=== PATIENT | female | born 1960 | race Caucasian/White ===

== ENCOUNTER 2017-10-10 11:20 | Inpatient (IN) ==
[2017-10-10 12:29] LABS: Basophils % 0.8 % (0.0-0.8); Eosinophils # 0.1 10*3/uL (0.0-0.87); Eosinophils % 2.3 % (0.00-10.9); Hematocrit 43.2 VOL% (35.7-47.0); Hemoglobin 15.1 GM/DL (12.0-16.0); Immature Granulocytes % 0.3 %; Immature Granulocytes Absolute 0.01 #; Lymphocytes # 1.4 10*3/uL (1.4-4.0); Lymphocytes % 36.3 % (21.3-54.2); Mean Corpuscular Hemoglobin 36 PG (27-34); Mean Corpuscular Volume 102.6 FL (87-102); Mean Platelet Volume 10.5 FL (9.6-12.0); Monocytes # 0.4 10*3/uL (0.11-0.8); Monocytes % 9.9 % (1.7-12.7); Neutrophils % 50.4 % (38.7-73.9); Platelet Count 177 T/CUMM (130-400); Red Blood Count 4.21 MC/CUMM (3.8-5.5); Red Cell Distribution Width 14.3 % (9.3-17.3); White Blood Count 3.9 T/CUMM (4-12)
[2017-10-10 12:35] LABS: INR 1.4; PT Patient Result 14.1 SECS; Partial Thromboplastin Time 31.5 SECS (0-40)
[2017-10-10 12:54] LABS: Alanine Aminotransferase 75 U/L (13-56); Albumin 3.5 G/DL (3.4-5.0); Alkaline Phosphatase 93 U/L (45-117); Aspartate Amino Transferase 182 U/L (0-37); Blood Urea Nitrogen 10 MG/DL (7-18); Calcium 8.8 MG/DL (8.5-10.1); Glucose 102 MG/DL (74-106); Osmolality,Calculated 284.8 MOS/KG (273-304); Potassium 3.1 MMOL/L (3.5-5.1); Sodium 144 MMOL/L (136-145); Troponin I Only < 0.015 NG/ML (0.00-0.045)
[2017-10-10] MEDS ORDERED: ACETAMINOPHEN 325 MG TABLET PO PRN (15:30)
[2017-10-10] MEDS ORDERED: guaiFENesin/DM ER 600-30 MG TABLET PO PRN (15:30)
[2017-10-10] MEDS ORDERED: diphenhydrAMINE CAP 25 MG CAPSULE PO PRN (15:30)
[2017-10-10] MEDS ORDERED: MAGNESIUM SULF RIDER 4 GM in PREMIX 1 EACH IV PRN (15:30)
[2017-10-10] MEDS ORDERED: BISACODYL 5 MG TABLET PO PRN (15:30)
[2017-10-10] MEDS ORDERED: MAGNESIUM SULF RIDER 2 GM in PREMIX 1 EACH IV PRN (15:30)
[2017-10-10] MEDS ORDERED: ONDANSETRON 4 MG/2 ML VIAL IV PRN (15:30)
[2017-10-10] MEDS ORDERED: DIGOXIN 0.5 MG/2 ML AMP IV STA (15:56)
[2017-10-10] MEDS ORDERED: DILTIAZEM 50 MG/10 ML VIAL IV ONE (17:00)
[2017-10-10] MEDS ORDERED: DILTIAZEM 100 MG VIAL.ADD IV ONE (17:23)
[2017-10-10] MEDS ORDERED: SODIUM CHLORIDE 0.9% 100 ML IV ONE (17:23)
[2017-10-10] MEDS ORDERED: FUROSEMIDE 40 MG TABLET ONE (17:28)
[2017-10-10] MEDS: DILTIAZEM INJ 100 MG in SODIUM CHLORIDE 0.9% 100 ML IV SCH (17:32)
[2017-10-10] MEDS: FUROSEMIDE 40 MG TABLET PO SCH (17:33)
[2017-10-10] MEDS ORDERED: PNEUMOCOCCAL VACCINE (23 VALENT) 0.5 ML VIAL IM ONE (18:23)
[2017-10-10] MEDS: POTASSIUM CHLORIDE 20 MEQ TABLET PO PRN ×3 (18:26→22:24)
[2017-10-10 19:21] LABS: Troponin I Only < 0.015 NG/ML (0.00-0.045)
[2017-10-10] MEDS: cloNIDine 0.1 MG TABLET PO SCH (20:24)
[2017-10-10] MEDS: DILTIAZEM CD 180 MG CAPSULE PO SCH (20:24)
[2017-10-10] MEDS: RIVAROXABAN 20 MG TABLET PO SCH (20:25)
[2017-10-10] MEDS ORDERED: ATENOLOL/CHLORTHALIDONE 50-25 MG TABLET PO SCH (21:00)
[2017-10-10 22:12] LABS: Troponin I Only < 0.015 NG/ML (0.00-0.045)
[2017-10-10] MEDS: ZALEPLON 5 MG CAPSULE PO PRN (22:24)
[2017-10-11] MEDS: DILTIAZEM INJ 100 MG in SODIUM CHLORIDE 0.9% 100 ML IV SCH ×2 (03:50→19:05)
[2017-10-11 05:04] LABS: Basophils % 0.5 % (0.0-0.8); Eosinophils # 0.1 10*3/uL (0.0-0.87); Eosinophils % 1.1 % (0.00-10.9); Hematocrit 40.6 VOL% (35.7-47.0); Hemoglobin 14.2 GM/DL (12.0-16.0); Immature Granulocytes % 0.5 %; Immature Granulocytes Absolute 0.03 #; Lymphocytes # 2.2 10*3/uL (1.4-4.0); Lymphocytes % 32.9 % (21.3-54.2); Mean Corpuscular Hemoglobin 36 PG (27-34); Mean Corpuscular Volume 103.3 FL (87-102); Mean Platelet Volume 10.6 FL (9.6-12.0); Monocytes # 0.8 10*3/uL (0.11-0.8); Monocytes % 12.4 % (1.7-12.7); Neutrophils # 3.5 10*3/uL (1.4-7.4); Neutrophils % 52.6 % (38.7-73.9); Platelet Count 174 T/CUMM (130-400); Red Blood Count 3.93 MC/CUMM (3.8-5.5); Red Cell Distribution Width 14.2 % (9.3-17.3); White Blood Count 6.6 T/CUMM (4-12)
[2017-10-11 05:34] LABS: Calcium 8.5 MG/DL (8.5-10.1); Magnesium 2.4 MG/DL (1.8-2.4); Osmolality,Calculated 280.1 MOS/KG (273-304); Potassium 3.2 MMOL/L (3.5-5.1)
[2017-10-11 05:57] LABS: Risk Ratio 2.48; VLDL CHOLESTEROL 24.6 MG/DL
[2017-10-11] MEDS: POTASSIUM CHLORIDE 20 MEQ TABLET PO PRN (07:35)
[2017-10-11] MEDS ORDERED: ATENOLOL 25 MG TABLET PO SCH ×2 (09:00)
[2017-10-11] MEDS ORDERED: DILTIAZEM HCL 180 MG PO SCH (09:00)
[2017-10-11] MEDS: POTASSIUM CHLORIDE 20 MEQ TABLET PO SCH (09:51)
[2017-10-11] MEDS: FUROSEMIDE 40 MG TABLET PO SCH ×2 (09:53→17:38)
[2017-10-11] MEDS: SERTRALINE 100 MG TABLET PO SCH (09:53)
[2017-10-11] MEDS: PANTOPRAZOLE 40 MG TABLET PO SCH (09:53)
[2017-10-11] MEDS: MULTIVITAMIN (CENTRUM) TABLET PO SCH (09:53)
[2017-10-11] MEDS: cloNIDine 0.1 MG TABLET PO SCH ×2 (09:53→21:10)
[2017-10-11] MEDS: DILTIAZEM CD 180 MG CAPSULE PO SCH (09:54)
[2017-10-11] MEDS: CHLORTHALIDONE 25 MG TABLET PO SCH ×2 (09:54→21:10)
[2017-10-11] MEDS: ZALEPLON 5 MG CAPSULE PO PRN (21:10)
[2017-10-11] MEDS: DILTIAZEM CD 240 MG CAPSULE PO SCH (21:10)
[2017-10-11] MEDS: ATENOLOL 50 MG TABLET PO SCH (21:11)
[2017-10-11] MEDS: RIVAROXABAN 20 MG TABLET PO SCH (21:11)
[2017-10-12] MEDS: DILTIAZEM INJ 100 MG in SODIUM CHLORIDE 0.9% 100 ML IV SCH (04:16)
[2017-10-12 05:36] LABS: Basophils % 0.6 % (0.0-0.8); Eosinophils # 0.1 10*3/uL (0.0-0.87); Eosinophils % 1.7 % (0.00-10.9); Hematocrit 40.4 VOL% (35.7-47.0); Hemoglobin 13.9 GM/DL (12.0-16.0); Immature Granulocytes % 0.4 %; Immature Granulocytes Absolute 0.02 #; Lymphocytes % 37.9 % (21.3-54.2); Mean Corpuscular HGB Conc 34.4 GM/DL (32-36); Mean Corpuscular Hemoglobin 36 PG (27-34); Mean Corpuscular Volume 103.6 FL (87-102); Mean Platelet Volume 10.5 FL (9.6-12.0); Monocytes # 0.6 10*3/uL (0.11-0.8); Monocytes % 11.5 % (1.7-12.7); Neutrophils # 2.6 10*3/uL (1.4-7.4); Neutrophils % 47.9 % (38.7-73.9); Platelet Count 147 T/CUMM (130-400); Red Cell Distribution Width 14.1 % (9.3-17.3); White Blood Count 5.4 T/CUMM (4-12)
[2017-10-12 05:55] LABS: Calcium 8.4 MG/DL (8.5-10.1); Magnesium 2.4 MG/DL (1.8-2.4); Osmolality,Calculated 275.4 MOS/KG (273-304)
[2017-10-12] MEDS: DILTIAZEM CD 240 MG CAPSULE PO SCH ×2 (09:09→21:31)
[2017-10-12] MEDS: MULTIVITAMIN (CENTRUM) TABLET PO SCH (09:09)
[2017-10-12] MEDS: POTASSIUM CHLORIDE 20 MEQ TABLET PO SCH ×3 (09:10→21:31)
[2017-10-12] MEDS: PANTOPRAZOLE 40 MG TABLET PO SCH (09:11)
[2017-10-12] MEDS: SERTRALINE 100 MG TABLET PO SCH (09:11)
[2017-10-12] MEDS: ATENOLOL 50 MG TABLET PO SCH ×2 (09:14→21:32)
[2017-10-12] MEDS: cloNIDine 0.1 MG TABLET PO SCH ×2 (09:14→21:31)
[2017-10-12] MEDS: SPIRONOLACTONE 25 MG TABLET PO SCH ×2 (09:19→21:32)
[2017-10-12] MEDS: FUROSEMIDE 40 MG TABLET PO SCH ×2 (09:19→18:11)
[2017-10-12] MEDS: RIVAROXABAN 20 MG TABLET PO SCH (21:31)
[2017-10-13 05:15] LABS: Basophils % 0.8 % (0.0-0.8); Eosinophils # 0.1 10*3/uL (0.0-0.87); Eosinophils % 1.6 % (0.00-10.9); Hematocrit 41.5 VOL% (35.7-47.0); Hemoglobin 14.1 GM/DL (12.0-16.0); Immature Granulocytes % 0.2 %; Immature Granulocytes Absolute 0.01 #; Lymphocytes # 1.8 10*3/uL (1.4-4.0); Lymphocytes % 35.5 % (21.3-54.2); Mean Corpuscular Hemoglobin 36 PG (27-34); Mean Corpuscular Volume 105.6 FL (87-102); Monocytes # 0.7 10*3/uL (0.11-0.8); Monocytes % 13.6 % (1.7-12.7); Neutrophils # 2.5 10*3/uL (1.4-7.4); Neutrophils % 48.3 % (38.7-73.9); Platelet Count 140 T/CUMM (130-400); Red Blood Count 3.93 MC/CUMM (3.8-5.5); Red Cell Distribution Width 13.7 % (9.3-17.3); White Blood Count 5.2 T/CUMM (4-12)
[2017-10-13 05:37] LABS: Calcium 8.6 MG/DL (8.5-10.1); Magnesium 2.3 MG/DL (1.8-2.4); Osmolality,Calculated 280.1 MOS/KG (273-304); Potassium 3.3 MMOL/L (3.5-5.1)
[2017-10-13] MEDS: POTASSIUM CHLORIDE 20 MEQ TABLET PO PRN (06:27)
[2017-10-13] MEDS: DILTIAZEM CD 240 MG CAPSULE PO SCH ×2 (10:13→21:45)
[2017-10-13] MEDS: POTASSIUM CHLORIDE 20 MEQ TABLET PO SCH ×2 (10:14→21:45)
[2017-10-13] MEDS: ATENOLOL 50 MG TABLET PO SCH (10:15)
[2017-10-13] MEDS: cloNIDine 0.1 MG TABLET PO SCH ×2 (10:15→21:45)
[2017-10-13] MEDS: PANTOPRAZOLE 40 MG TABLET PO SCH (10:15)
[2017-10-13] MEDS: FUROSEMIDE 40 MG TABLET PO SCH ×2 (10:16→15:13)
[2017-10-13] MEDS: MULTIVITAMIN (CENTRUM) TABLET PO SCH (10:16)
[2017-10-13] MEDS: SPIRONOLACTONE 25 MG TABLET PO SCH ×2 (10:16→15:13)
[2017-10-13] MEDS: SERTRALINE 100 MG TABLET PO SCH (10:16)
[2017-10-13] MEDS ORDERED: ATENOLOL 50 MG TABLET PO ONE (11:13)
[2017-10-13] MEDS ORDERED: DIGOXIN 0.25 MG TABLET PO ONE (11:14)
[2017-10-13] MEDS ORDERED: DIGOXIN 0.25 MG TABLET PO SCH (13:00)
[2017-10-13] MEDS ORDERED: SIMETHICONE CHEW 125 MG TABLET PO PRN (17:35)
[2017-10-13] MEDS ORDERED: PRAMIPEXOLE 0.25 MG TABLET PO SCH (21:00)
[2017-10-13] MEDS: RIVAROXABAN 20 MG TABLET PO SCH (21:45)
[2017-10-13] MEDS: ATENOLOL 100 MG TABLET PO SCH (21:45)
[2017-10-13] MEDS: ZALEPLON 5 MG CAPSULE PO PRN (21:52)
[2017-10-14 03:48] LABS: Basophils % 0.6 % (0.0-0.8); Eosinophils # 0.1 10*3/uL (0.0-0.87); Eosinophils % 1.6 % (0.00-10.9); Hematocrit 42.9 VOL% (35.7-47.0); Hemoglobin 14.6 GM/DL (12.0-16.0); Immature Granulocytes % 0.3 %; Immature Granulocytes Absolute 0.02 #; Lymphocytes # 1.7 10*3/uL (1.4-4.0); Lymphocytes % 25.5 % (21.3-54.2); Mean Corpuscular Hemoglobin 36 PG (27-34); Mean Corpuscular Volume 105.9 FL (87-102); Monocytes # 0.7 10*3/uL (0.11-0.8); Monocytes % 10.6 % (1.7-12.7); Neutrophils # 4.1 10*3/uL (1.4-7.4); Neutrophils % 61.4 % (38.7-73.9); Platelet Count 135 T/CUMM (130-400); Red Blood Count 4.05 MC/CUMM (3.8-5.5); Red Cell Distribution Width 13.8 % (9.3-17.3); White Blood Count 6.7 T/CUMM (4-12)
[2017-10-14 04:28] LABS: Albumin 3.4 G/DL (3.4-5.0); Calcium 9.3 MG/DL (8.5-10.1); Magnesium 2.3 MG/DL (1.8-2.4); Osmolality,Calculated 276.7 MOS/KG (273-304); Potassium 3.8 MMOL/L (3.5-5.1); Total Protein 6.7 G/DL (6.4-8.3)
[2017-10-14 07:48] VITALS: BP 137/78
[2017-10-14] MEDS: cloNIDine 0.1 MG TABLET PO SCH (08:28)
[2017-10-14] MEDS: SPIRONOLACTONE 25 MG TABLET PO SCH (08:28)
[2017-10-14] MEDS: FUROSEMIDE 40 MG TABLET PO SCH (08:28)
[2017-10-14] MEDS: ATENOLOL 100 MG TABLET PO SCH (08:28)
[2017-10-14] MEDS: SERTRALINE 100 MG TABLET PO SCH (08:29)
[2017-10-14] MEDS: MULTIVITAMIN (CENTRUM) TABLET PO SCH (08:29)
[2017-10-14] MEDS: POTASSIUM CHLORIDE 20 MEQ TABLET PO SCH (08:29)
[2017-10-14] MEDS: DILTIAZEM CD 240 MG CAPSULE PO SCH (08:29)
[2017-10-14] MEDS: PANTOPRAZOLE 40 MG TABLET PO SCH (08:29)
[2017-10-14] MEDS ORDERED: PNEUMOCOCCAL VACCINE (23 VALENT) 0.5 ML VIAL IM ONE (10:22)
== END 2017-10-14 11:32 | disposition home or self-care (01) | DRG 309 ==
LOC: N.ED 11:20 → N.EDINP 11:20 → N.TELES 18:10
PROVIDERS: ADMIT Internal Medicine Cardiovascular Disease; ATTEND Internal Medicine Cardiovascular Disease

== ENCOUNTER 2018-06-14 16:53 | Inpatient (IN) ==
[2018-06-14] MEDS ORDERED: ONDANSETRON 4 MG/2 ML VIAL IV STA (17:22)
[2018-06-14 17:44] LABS: Basophils % 0.4 % (0.0-0.8); Eosinophils % 0.3 % (0.00-10.9); Hematocrit 33.7 VOL% (35.7-47.0); Hemoglobin 11.7 GM/DL (12.0-16.0); Immature Granulocytes % 1.4 %; Immature Granulocytes Absolute 0.11 #; Mean Corpuscular HGB Conc 34.7 GM/DL (32-36); Mean Corpuscular Hemoglobin 41 PG (27-34); Mean Corpuscular Volume 117.4 FL (87-102); Mean Platelet Volume 10.2 FL (9.6-12.0); Monocytes # 0.9 10*3/uL (0.11-0.8); Monocytes % 11.7 % (1.7-12.7); NRBC # 0.02 10*3/uL; Neutrophils # 5.9 10*3/uL (1.4-7.4); Neutrophils % 74.2 % (38.7-73.9); Platelet Count 111 T/CUMM (130-400); Red Blood Count 2.87 MC/CUMM (3.8-5.5); Red Cell Distribution Width 13.2 % (9.3-17.3); White Blood Count 7.9 T/CUMM (4-12)
[2018-06-14 18:07] LABS: Albumin 2.5 G/DL (3.4-5.0); Calcium 9.1 MG/DL (8.5-10.1); Osmolality,Calculated 253.1 MOS/KG (273-304); Potassium 3.6 MMOL/L (3.5-5.1); Total Protein 6.2 G/DL (6.4-8.3)
[2018-06-14 18:09] LABS: Bilirubin,Total 20.6 MG/DL (0.2-1.0)
[2018-06-14 19:32] LABS: INR 1.8; PT Patient Result 18.4 SECS
[2018-06-14 19:38] LABS: Partial Thromboplastin Time 40.6 SECS (0-40)
[2018-06-14] MEDS ORDERED: traZODone 50 MG TABLET PO PRN (19:40)
[2018-06-14] MEDS ORDERED: ONDANSETRON 4 MG/2 ML VIAL IV PRN (19:40)
[2018-06-14] MEDS ORDERED: DOCUSATE SODIUM 100 MG CAPSULE PO PRN (19:40)
[2018-06-14] MEDS ORDERED: ACETAMINOPHEN 325 MG TABLET PO PRN (19:40)
[2018-06-14 20:37] LABS: Hepatitis A Ab IgM Quant 0.26 Index; Hepatitis A Ab IgM Result Negative (Negative); Hepatitis B Core IgM Quant < 0.05 Index; Hepatitis B Core IgM Result Negative (Negative); Hepatitis B Surface Ag Quant 0.19 Index; Hepatitis B Surface Ag Result Negative (Negative); Hepatitis C Virus Ab Quant 0.02 Index; Hepatitis C Virus Ab Result Negative (Negative)
[2018-06-14] MEDS: ENOXAPARIN 40 MG/0.4 ML SYRINGE SUBCUT SCH ×2 (22:13→22:22)
[2018-06-14] MEDS ORDERED: ONDANSETRON 4 MG TABLET PO PRN (22:20)
[2018-06-14] MEDS: POTASSIUM CHLORIDE 20 MEQ TABLET PO SCH (22:27)
[2018-06-14] MEDS: AMIODARONE 200 MG TABLET PO SCH (22:37)
[2018-06-14] MEDS: LACTULOSE 20 GM/30 ML UDCUP PO SCH (22:38)
[2018-06-14] MEDS: SODIUM CHLORIDE 0.9% 1,000 ML IV SCH (22:39)
[2018-06-14 22:45] LABS: Apearance,Urine Slightly Hazy (Clear); Bacteria,Urine Occasional /HPF (Few); Bilirubin,Urine Moderate mg/dL (Negative); Blood, Urine Moderate mg/dL (Negative); Glucose,Urine (UA) Negative (Negative); Ketones,Urine 5 mg/dL (Negative); Mucus,Urine Occasional /LPF (Occasional); Nitrite,Urine Negative (Negative); Protein,Urine 30 MG/DL; RBC,Urine 4 /HPF (0-4); Squamous Epithelial Cell,Urine Occasional /HPF (0-10); Urine Color Amber (Yellow); Urine Specific Gravity 1.041 (1.001-1.035); WBC,Urine 20 /HPF (0-6)
[2018-06-14 23:34] LABS: % Iron Saturation 94.6 % (18-50); Ferritin 1425.6 ng/ml (8-252)
[2018-06-15 00:42] LABS: Hepatitis A Ab IgM Quant 0.25 Index; Hepatitis A Ab IgM Result Negative (Negative); Hepatitis B Core IgM Quant < 0.05 Index; Hepatitis B Core IgM Result Negative (Negative); Hepatitis B Surface Ag Quant 0.14 Index; Hepatitis B Surface Ag Result Negative (Negative); Hepatitis C Virus Ab Quant 0.02 Index; Hepatitis C Virus Ab Result Negative (Negative)
[2018-06-15 05:30] LABS: Basophils % 0.4 % (0.0-0.8); Eosinophils % 0.5 % (0.00-10.9); Hematocrit 30.1 VOL% (35.7-47.0); Hemoglobin 10.4 GM/DL (12.0-16.0); Immature Granulocytes % 1.7 %; Immature Granulocytes Absolute 0.13 #; Lymphocytes # 1.2 10*3/uL (1.4-4.0); Lymphocytes % 15.4 % (21.3-54.2); Mean Corpuscular HGB Conc 34.6 GM/DL (32-36); Mean Corpuscular Hemoglobin 40 PG (27-34); Mean Corpuscular Volume 115.8 FL (87-102); Mean Platelet Volume 10.3 FL (9.6-12.0); Monocytes # 0.7 10*3/uL (0.11-0.8); Monocytes % 9.3 % (1.7-12.7); Neutrophils # 5.6 10*3/uL (1.4-7.4); Neutrophils % 72.7 % (38.7-73.9); Platelet Count 105 T/CUMM (130-400); Red Cell Distribution Width 13.2 % (9.3-17.3); White Blood Count 7.6 T/CUMM (4-12)
[2018-06-15 05:38] LABS: INR 1.4; PT Patient Result 14.7 SECS
[2018-06-15 05:47] LABS: Hypochromasia 1+; Ovalocytes Slight; Platelet Estimate Decreased
[2018-06-15 05:50] LABS: Risk Ratio 25.91; VLDL CHOLESTEROL 84.2 MG/DL
[2018-06-15 06:01] LABS: Albumin 2.4 G/DL (3.4-5.0); Calcium 8.9 MG/DL (8.5-10.1); Osmolality,Calculated 254.1 MOS/KG (273-304); Potassium 3.7 MMOL/L (3.5-5.1); Total Protein 5.6 G/DL (6.4-8.3)
[2018-06-15] MEDS: FAMOTIDINE 20 MG/2 ML VIAL IV SCH ×2 (08:59→21:12)
[2018-06-15] MEDS ORDERED: PANTOPRAZOLE 40 MG TABLET PO SCH (09:00)
[2018-06-15] MEDS: MAGNESIUM OXIDE 400 MG TABLET PO SCH (10:27)
[2018-06-15] MEDS: CYANOCOBALAMIN 500 MCG TABLET PO SCH (10:27)
[2018-06-15] MEDS: FOLIC ACID 0.4 MG TABLET PO SCH (10:27)
[2018-06-15] MEDS: AMIODARONE 200 MG TABLET PO SCH ×2 (10:27→21:11)
[2018-06-15] MEDS: POTASSIUM CHLORIDE 20 MEQ TABLET PO SCH ×2 (10:27→21:12)
[2018-06-15] MEDS: SERTRALINE 100 MG TABLET PO SCH (10:27)
[2018-06-15] MEDS: LACTULOSE 20 GM/30 ML UDCUP PO SCH ×2 (10:28→21:11)
[2018-06-15] MEDS: SODIUM CHLORIDE 0.9% 1,000 ML IV SCH (14:07)
[2018-06-16] MEDS: SODIUM CHLORIDE 0.9% 1,000 ML IV SCH ×2 (06:37→14:20)
[2018-06-16] MEDS: SODIUM CHLORIDE 0.45% 1,000 ML IV SCH (08:13)
[2018-06-16] MEDS: FAMOTIDINE 20 MG/2 ML VIAL IV SCH ×2 (08:14→21:17)
[2018-06-16] MEDS ORDERED: VANCOMYCIN INJ 1,750 MG in SODIUM CHLORIDE 0.9% 500 ML IV ONE (09:00)
[2018-06-16] MEDS ORDERED: DIAZEPAM 5 MG TABLET PO ONE (09:07)
[2018-06-16] MEDS: VANCOMYCIN INJ 1,750 MG in SODIUM CHLORIDE 0.9% 500 ML IV SCH (10:30)
[2018-06-16] MEDS: FOLIC ACID 0.4 MG TABLET PO SCH (12:44)
[2018-06-16] MEDS: AMIODARONE 200 MG TABLET PO SCH ×2 (12:44→21:16)
[2018-06-16] MEDS: SERTRALINE 100 MG TABLET PO SCH (12:44)
[2018-06-16] MEDS: LACTULOSE 20 GM/30 ML UDCUP PO SCH ×2 (12:44→21:16)
[2018-06-16] MEDS: MAGNESIUM OXIDE 400 MG TABLET PO SCH (12:44)
[2018-06-16] MEDS: LEVOFLOXACIN INJ 500 MG in PREMIX 1 EACH IV SCH (12:45)
[2018-06-16] MEDS: POTASSIUM CHLORIDE 20 MEQ TABLET PO SCH (12:45)
[2018-06-16] MEDS: CYANOCOBALAMIN 500 MCG TABLET PO SCH (12:45)
[2018-06-16] MEDS: SUCRALFATE 1 GM TABLET PO SCH ×2 (17:54→23:07)
[2018-06-16] MEDS ORDERED: POTASSIUM CHLORIDE 20 MEQ/15 ML UDCUP PO SCH (21:00)
[2018-06-16] MEDS: PRAMIPEXOLE 0.25 MG TABLET PO PRN (21:16)
[2018-06-16] MEDS: RIFAXIMIN 550 MG TABLET PO SCH (21:16)
[2018-06-17 06:19] LABS: Basophils % 0.4 % (0.0-0.8); Eosinophils # 0.1 10*3/uL (0.0-0.87); Eosinophils % 1.1 % (0.00-10.9); Hematocrit 29.8 VOL% (35.7-47.0); Hemoglobin 10.1 GM/DL (12.0-16.0); Immature Granulocytes % 3.1 %; Immature Granulocytes Absolute 0.17 #; Lymphocytes # 0.6 10*3/uL (1.4-4.0); Mean Corpuscular HGB Conc 33.9 GM/DL (32-36); Mean Corpuscular Hemoglobin 40 PG (27-34); Mean Corpuscular Volume 118.7 FL (87-102); Mean Platelet Volume 10.2 FL (9.6-12.0); Monocytes # 0.4 10*3/uL (0.11-0.8); NRBC # 0.03 10*3/uL; Neutrophils # 4.3 10*3/uL (1.4-7.4); Neutrophils % 77.4 % (38.7-73.9); Red Blood Count 2.51 MC/CUMM (3.8-5.5); Red Cell Distribution Width 13.4 % (9.3-17.3); White Blood Count 5.6 T/CUMM (4-12)
[2018-06-17 06:38] LABS: Bilirubin,Direct 15.35 MG/DL (0.0-0.20); Calcium 8.5 MG/DL (8.5-10.1); Osmolality,Calculated 264.2 MOS/KG (273-304)
[2018-06-17 06:39] LABS: Platelet Count 77 T/CUMM (130-400)
[2018-06-17 06:50] LABS: Bilirubin,Indirect 4.3 MG/DL (0.0-1.0); Bilirubin,Total 19.6 MG/DL (0.2-1.0)
[2018-06-17] MEDS: SODIUM CHLORIDE 0.9% 1,000 ML IV SCH ×2 (07:01→17:46)
[2018-06-17] MEDS: SUCRALFATE 1 GM TABLET PO SCH ×4 (07:02→23:53)
[2018-06-17] MEDS: FOLIC ACID 0.4 MG TABLET PO SCH (09:13)
[2018-06-17] MEDS: SERTRALINE 100 MG TABLET PO SCH (09:19)
[2018-06-17] MEDS: CYANOCOBALAMIN 500 MCG TABLET PO SCH (09:20)
[2018-06-17] MEDS: AMIODARONE 200 MG TABLET PO SCH ×2 (09:21→20:52)
[2018-06-17] MEDS: MAGNESIUM OXIDE 400 MG TABLET PO SCH (09:22)
[2018-06-17] MEDS: FAMOTIDINE 20 MG/2 ML VIAL IV SCH ×2 (09:25→21:03)
[2018-06-17] MEDS: RIFAXIMIN 550 MG TABLET PO SCH ×2 (10:54→20:52)
[2018-06-17] MEDS: POTASSIUM CHLORIDE 20 MEQ TABLET PO SCH ×3 (10:56→20:54)
[2018-06-17] MEDS: LACTULOSE 20 GM/30 ML UDCUP PO SCH ×2 (10:57→20:59)
[2018-06-17] MEDS: LEVOFLOXACIN INJ 500 MG in PREMIX 1 EACH IV SCH (10:59)
[2018-06-17] MEDS: SODIUM CHLORIDE 0.45% 1,000 ML IV SCH (12:28)
[2018-06-17] MEDS: VANCOMYCIN INJ 1,750 MG in SODIUM CHLORIDE 0.9% 500 ML IV SCH (12:33)
[2018-06-17] MEDS: PRAMIPEXOLE 0.25 MG TABLET PO PRN (20:53)
[2018-06-17] MEDS ORDERED: POTASSIUM CHLORIDE 20 MEQ TABLET PO SCH (23:30)
[2018-06-18] MEDS ORDERED: VANCOMYCIN INJ 1,750 MG in SODIUM CHLORIDE 0.9% 500 ML IV SCH
[2018-06-18] MEDS: POTASSIUM CHLORIDE 20 MEQ TABLET PO SCH (00:01)
[2018-06-18 04:39] LABS: Calcium 8.2 MG/DL (8.5-10.1); Osmolality,Calculated 263.2 MOS/KG (273-304); Potassium 4.2 MMOL/L (3.5-5.1)
[2018-06-18] MEDS: SUCRALFATE 1 GM TABLET PO SCH ×4 (06:10→23:41)
[2018-06-18] MEDS: LEVOTHYROXINE 50 MCG TABLET PO SCH (06:10)
[2018-06-18] MEDS: SODIUM CHLORIDE 0.9% 1,000 ML IV SCH (06:49)
[2018-06-18] MEDS: CYANOCOBALAMIN 500 MCG TABLET PO SCH (08:55)
[2018-06-18] MEDS: RIFAXIMIN 550 MG TABLET PO SCH ×2 (08:55→21:52)
[2018-06-18] MEDS: AMIODARONE 200 MG TABLET PO SCH ×2 (08:55→21:52)
[2018-06-18] MEDS: FOLIC ACID 0.4 MG TABLET PO SCH (08:55)
[2018-06-18] MEDS: FAMOTIDINE 20 MG/2 ML VIAL IV SCH (08:56)
[2018-06-18] MEDS: SERTRALINE 100 MG TABLET PO SCH (08:56)
[2018-06-18] MEDS: MAGNESIUM OXIDE 400 MG TABLET PO SCH (08:56)
[2018-06-18] MEDS: LACTULOSE 20 GM/30 ML UDCUP PO SCH ×2 (08:57→21:52)
[2018-06-18] MEDS: AMOXICILLIN/CLAV 875 MG TABLET PO SCH ×2 (11:49→21:52)
[2018-06-18] MEDS: SODIUM CHLORIDE 0.45% 1,000 ML IV SCH (14:14)
[2018-06-18 16:00] LABS: Albumin 2.2 G/DL (3.4-5.0); Bilirubin,Direct 19.68 MG/DL (0.0-0.20); Total Protein 5.5 G/DL (6.4-8.3)
[2018-06-18 16:02] LABS: Bilirubin,Indirect 4.1 MG/DL (0.0-1.0); Bilirubin,Total 23.8 MG/DL (0.2-1.0)
[2018-06-18] MEDS: PRAMIPEXOLE 0.25 MG TABLET PO PRN (19:32)
[2018-06-18] MEDS: FAMOTIDINE 20 MG TABLET PO SCH (21:52)
[2018-06-19] MEDS: SUCRALFATE 1 GM TABLET PO SCH ×3 (05:46→18:29)
[2018-06-19] MEDS: LEVOTHYROXINE 50 MCG TABLET PO SCH (05:46)
[2018-06-19] MEDS: SERTRALINE 100 MG TABLET PO SCH (09:06)
[2018-06-19] MEDS: FOLIC ACID 0.4 MG TABLET PO SCH (09:06)
[2018-06-19] MEDS: MAGNESIUM OXIDE 400 MG TABLET PO SCH (09:06)
[2018-06-19] MEDS: RIFAXIMIN 550 MG TABLET PO SCH ×2 (09:06→20:37)
[2018-06-19] MEDS: CYANOCOBALAMIN 500 MCG TABLET PO SCH (09:06)
[2018-06-19] MEDS: AMIODARONE 200 MG TABLET PO SCH (09:07)
[2018-06-19] MEDS: FAMOTIDINE 20 MG TABLET PO SCH ×2 (09:07→20:37)
[2018-06-19] MEDS: LACTULOSE 20 GM/30 ML UDCUP PO SCH ×2 (09:17→20:38)
[2018-06-19] MEDS: AMOXICILLIN/CLAV 875 MG TABLET PO SCH (09:30)
[2018-06-19] MEDS: PRAMIPEXOLE 0.25 MG TABLET PO PRN (18:31)
[2018-06-19] MEDS: CEFUROXIME 250 MG TABLET PO SCH (20:37)
[2018-06-20] MEDS: SUCRALFATE 1 GM TABLET PO SCH ×4 (00:26→17:38)
[2018-06-20 05:53] LABS: Albumin 1.9 G/DL (3.4-5.0); Bilirubin,Direct 18.68 MG/DL (0.0-0.20); Total Protein 5.1 G/DL (6.4-8.3)
[2018-06-20 06:05] LABS: Bilirubin,Indirect 2.7 MG/DL (0.0-1.0); Bilirubin,Total 21.4 MG/DL (0.2-1.0)
[2018-06-20] MEDS: LEVOTHYROXINE 50 MCG TABLET PO SCH (06:32)
[2018-06-20] MEDS: CEFUROXIME 250 MG TABLET PO SCH ×2 (08:27→20:21)
[2018-06-20] MEDS: LACTULOSE 20 GM/30 ML UDCUP PO SCH ×2 (08:27→20:22)
[2018-06-20] MEDS: FOLIC ACID 0.4 MG TABLET PO SCH (08:27)
[2018-06-20] MEDS: RIFAXIMIN 550 MG TABLET PO SCH ×2 (08:27→20:20)
[2018-06-20] MEDS: RIVAROXABAN 20 MG TABLET PO SCH (08:27)
[2018-06-20] MEDS: CYANOCOBALAMIN 500 MCG TABLET PO SCH (08:28)
[2018-06-20] MEDS: FAMOTIDINE 20 MG TABLET PO SCH ×2 (08:28→20:19)
[2018-06-20] MEDS: MAGNESIUM OXIDE 400 MG TABLET PO SCH (08:28)
[2018-06-20] MEDS: SERTRALINE 100 MG TABLET PO SCH (08:28)
[2018-06-20] MEDS: SOTALOL 80 MG TABLET PO SCH ×2 (10:10→20:19)
[2018-06-20] MEDS: LORazepam 2 MG/1 ML VIAL IV PRN (15:02)
[2018-06-20] MEDS: PRAMIPEXOLE 0.25 MG TABLET PO PRN (20:19)
[2018-06-21] MEDS: SUCRALFATE 1 GM TABLET PO SCH ×5 (00:54→23:45)
[2018-06-21 05:40] LABS: Basophils % 0.5 % (0.0-0.8); Eosinophils # 0.1 10*3/uL (0.0-0.87); Hematocrit 30.6 VOL% (35.7-47.0); Hemoglobin 10.9 GM/DL (12.0-16.0); Immature Granulocytes % 3.2 %; Immature Granulocytes Absolute 0.19 #; Lymphocytes # 0.7 10*3/uL (1.4-4.0); Mean Corpuscular HGB Conc 35.6 GM/DL (32-36); Mean Corpuscular Hemoglobin 40 PG (27-34); Mean Corpuscular Volume 110.9 FL (87-102); Mean Platelet Volume 10.1 FL (9.6-12.0); Monocytes # 0.5 10*3/uL (0.11-0.8); Monocytes % 7.9 % (1.7-12.7); NRBC # 0.03 10*3/uL; Neutrophils # 4.5 10*3/uL (1.4-7.4); Neutrophils % 76.4 % (38.7-73.9); Platelet Count 68 T/CUMM (130-400); Red Blood Count 2.76 MC/CUMM (3.8-5.5); Red Cell Distribution Width 13.7 % (9.3-17.3); White Blood Count 5.9 T/CUMM (4-12)
[2018-06-21 06:01] LABS: Calcium 7.9 MG/DL (8.5-10.1); Osmolality,Calculated 264.2 MOS/KG (273-304); Potassium 2.7 MMOL/L (3.5-5.1)
[2018-06-21] MEDS: LEVOTHYROXINE 50 MCG TABLET PO SCH (06:13)
[2018-06-21 06:21] LABS: Albumin 1.7 G/DL (3.4-5.0); Bilirubin,Direct 17.97 MG/DL (0.0-0.20)
[2018-06-21 06:22] LABS: Bilirubin,Indirect 2.9 MG/DL (0.0-1.0); Bilirubin,Total 20.9 MG/DL (0.2-1.0)
[2018-06-21] MEDS: SOTALOL 80 MG TABLET PO SCH ×2 (08:34→20:35)
[2018-06-21] MEDS: MAGNESIUM OXIDE 400 MG TABLET PO SCH (08:34)
[2018-06-21] MEDS: FAMOTIDINE 20 MG TABLET PO SCH ×2 (08:35→20:36)
[2018-06-21] MEDS: CEFUROXIME 250 MG TABLET PO SCH ×2 (08:35→20:37)
[2018-06-21] MEDS: RIFAXIMIN 550 MG TABLET PO SCH ×2 (08:35→20:37)
[2018-06-21] MEDS: FOLIC ACID 0.4 MG TABLET PO SCH (08:35)
[2018-06-21] MEDS: CYANOCOBALAMIN 500 MCG TABLET PO SCH (08:35)
[2018-06-21] MEDS: SERTRALINE 100 MG TABLET PO SCH (08:35)
[2018-06-21] MEDS: LACTULOSE 20 GM/30 ML UDCUP PO SCH (08:36)
[2018-06-21] MEDS: POTASSIUM CHLORIDE RIDER 10 MEQ in PREMIX 1 EACH IV SCH ×4 (09:13→15:21)
[2018-06-21] MEDS: POTASSIUM CHLORIDE 20 MEQ TABLET PO SCH ×3 (09:14→20:36)
[2018-06-21] MEDS: LORazepam 2 MG/1 ML VIAL IV PRN ×2 (10:04→16:53)
[2018-06-21] MEDS ORDERED: POTASSIUM CHLORIDE RIDER 10 MEQ in PREMIX 1 EACH IV SCH (15:30)
[2018-06-21] MEDS: PRAMIPEXOLE 0.25 MG TABLET PO PRN (20:35)
[2018-06-22 02:01] LABS: Basophils % 0.6 % (0.0-0.8); Eosinophils # 0.1 10*3/uL (0.0-0.87); Eosinophils % 0.7 % (0.00-10.9); Hematocrit 30.1 VOL% (35.7-47.0); Hemoglobin 10.5 GM/DL (12.0-16.0); Immature Granulocytes % 3.3 %; Immature Granulocytes Absolute 0.23 #; Lymphocytes # 0.8 10*3/uL (1.4-4.0); Lymphocytes % 11.5 % (21.3-54.2); Mean Corpuscular HGB Conc 34.9 GM/DL (32-36); Mean Corpuscular Hemoglobin 39 PG (27-34); Mean Corpuscular Volume 112.7 FL (87-102); Mean Platelet Volume 9.9 FL (9.6-12.0); Monocytes # 0.6 10*3/uL (0.11-0.8); Monocytes % 8.1 % (1.7-12.7); NRBC # 0.04 10*3/uL; Neutrophils # 5.2 10*3/uL (1.4-7.4); Neutrophils % 75.8 % (38.7-73.9); Red Blood Count 2.67 MC/CUMM (3.8-5.5); Red Cell Distribution Width 13.2 % (9.3-17.3); White Blood Count 6.9 T/CUMM (4-12)
[2018-06-22 02:07] LABS: Platelet Count 68 T/CUMM (130-400)
[2018-06-22 02:24] LABS: Calcium 8.1 MG/DL (8.5-10.1); Osmolality,Calculated 264.2 MOS/KG (273-304); Potassium 3.2 MMOL/L (3.5-5.1)
[2018-06-22 02:47] LABS: Platelet Estimate Decreased; Polychromasia Few
[2018-06-22] MEDS: LEVOTHYROXINE 50 MCG TABLET PO SCH (05:49)
[2018-06-22] MEDS: SUCRALFATE 1 GM TABLET PO SCH ×3 (05:49→18:25)
[2018-06-22 09:20] LABS: Albumin 1.8 G/DL (3.4-5.0); Bilirubin,Direct 17.84 MG/DL (0.0-0.20); Total Protein 4.9 G/DL (6.4-8.3)
[2018-06-22 09:23] LABS: Bilirubin,Indirect 3.3 MG/DL (0.0-1.0); Bilirubin,Total 21.1 MG/DL (0.2-1.0)
[2018-06-22] MEDS: FOLIC ACID 0.4 MG TABLET PO SCH (09:58)
[2018-06-22] MEDS: MAGNESIUM OXIDE 400 MG TABLET PO SCH (09:59)
[2018-06-22] MEDS: LACTULOSE 20 GM/30 ML UDCUP PO SCH (09:59)
[2018-06-22] MEDS: SERTRALINE 100 MG TABLET PO SCH (09:59)
[2018-06-22] MEDS: CYANOCOBALAMIN 500 MCG TABLET PO SCH (09:59)
[2018-06-22] MEDS: RIFAXIMIN 550 MG TABLET PO SCH ×2 (09:59→20:51)
[2018-06-22] MEDS: CEFUROXIME 250 MG TABLET PO SCH (09:59)
[2018-06-22] MEDS: POTASSIUM CHLORIDE 20 MEQ TABLET PO SCH ×3 (10:00→20:50)
[2018-06-22] MEDS: SOTALOL 80 MG TABLET PO SCH ×2 (10:00→20:54)
[2018-06-22] MEDS: FAMOTIDINE 20 MG TABLET PO SCH ×2 (10:00→20:51)
[2018-06-22] MEDS: PRAMIPEXOLE 0.25 MG TABLET PO PRN (20:50)
[2018-06-22] MEDS: LORazepam 2 MG/1 ML VIAL IV PRN (20:51)
[2018-06-23] MEDS: SUCRALFATE 1 GM TABLET PO SCH ×4 (00:54→18:17)
[2018-06-23] MEDS ORDERED: INDOMETHACIN SUPP 50 MG SUPP RECTAL ONE (06:30)
[2018-06-23] MEDS: LEVOTHYROXINE 50 MCG TABLET PO SCH (07:13)
[2018-06-23 07:46] LABS: Basophils # 0.1 10*3/uL (0.0-0.2); Basophils % 0.7 % (0.0-0.8); Eosinophils # 0.1 10*3/uL (0.0-0.87); Hemoglobin 10.4 GM/DL (12.0-16.0); Immature Granulocytes % 3.9 %; Immature Granulocytes Absolute 0.27 #; Lymphocytes # 0.8 10*3/uL (1.4-4.0); Lymphocytes % 11.8 % (21.3-54.2); Mean Corpuscular HGB Conc 34.7 GM/DL (32-36); Mean Corpuscular Hemoglobin 39 PG (27-34); Mean Corpuscular Volume 111.1 FL (87-102); Mean Platelet Volume 10.1 FL (9.6-12.0); Monocytes # 0.6 10*3/uL (0.11-0.8); Monocytes % 8.6 % (1.7-12.7); NRBC # 0.04 10*3/uL; Neutrophils # 5.1 10*3/uL (1.4-7.4); Platelet Count 55 T/CUMM (130-400); Red Cell Distribution Width 13.5 % (9.3-17.3); White Blood Count 6.9 T/CUMM (4-12)
[2018-06-23 07:48] LABS: INR 1.2; PT Patient Result 12.2 SECS; Partial Thromboplastin Time 28.2 SECS (0-40)
[2018-06-23 08:18] LABS: Calcium 8.2 MG/DL (8.5-10.1); Osmolality,Calculated 267.1 MOS/KG (273-304); Potassium 3.1 MMOL/L (3.5-5.1)
[2018-06-23] MEDS ORDERED: POTASSIUM CHLORIDE RIDER 10 MEQ in PREMIX 1 EACH IV ONE (08:24)
[2018-06-23 08:27] LABS: Albumin 1.9 G/DL (3.4-5.0); Bilirubin,Direct 19.28 MG/DL (0.0-0.20); Total Protein 4.6 G/DL (6.4-8.3)
[2018-06-23 08:30] LABS: Bilirubin,Indirect 3.7 MG/DL (0.0-1.0)
[2018-06-23] MEDS ORDERED: SODIUM CHLORIDE 0.9% 1,000 ML IV PRN ×2 (09:34→10:55)
[2018-06-23] MEDS ORDERED: LIDOCAINE 2% 5 ML VIAL ONE (10:00)
[2018-06-23] MEDS ORDERED: SUCCINYLCHOLINE 200 MG/10 ML VIAL ONE (10:00)
[2018-06-23] MEDS ORDERED: ONDANSETRON 4 MG/2 ML VIAL ONE (10:00)
[2018-06-23] MEDS ORDERED: PROPOFOL 200 MG/20 ML VIAL IV ONE (10:00)
[2018-06-23 11:12] LABS: Hypochromasia 1+; Macrocytosis 1+; Platelet Estimate Decreased; Polychromasia Slight
[2018-06-23] MEDS ORDERED: fentaNYL 100 MCG/2 ML VIAL ONE (11:36)
[2018-06-23] MEDS ORDERED: GLUCAGON 1 MG VIAL ONE (12:59)
[2018-06-23] MEDS ORDERED: LACTATED RINGERS 1,000 ML IV SCH (14:30)
[2018-06-23] MEDS: SOTALOL 80 MG TABLET PO SCH ×2 (16:50→20:26)
[2018-06-23] MEDS: CYANOCOBALAMIN 500 MCG TABLET PO SCH (16:51)
[2018-06-23] MEDS: FAMOTIDINE 20 MG TABLET PO SCH ×2 (16:51→20:26)
[2018-06-23] MEDS: MAGNESIUM OXIDE 400 MG TABLET PO SCH (16:51)
[2018-06-23] MEDS: LACTULOSE 20 GM/30 ML UDCUP PO SCH (16:51)
[2018-06-23] MEDS: FOLIC ACID 0.4 MG TABLET PO SCH (16:51)
[2018-06-23] MEDS: SERTRALINE 100 MG TABLET PO SCH (16:52)
[2018-06-23] MEDS: RIFAXIMIN 550 MG TABLET PO SCH ×2 (16:52→20:29)
[2018-06-23] MEDS: POTASSIUM CHLORIDE 20 MEQ TABLET PO SCH ×2 (18:15→20:30)
[2018-06-24] MEDS: SUCRALFATE 1 GM TABLET PO SCH ×4 (00:28→18:01)
[2018-06-24 04:17] LABS: Basophils % 0.4 % (0.0-0.8); Eosinophils # 0.1 10*3/uL (0.0-0.87); Eosinophils % 0.6 % (0.00-10.9); Hematocrit 27.7 VOL% (35.7-47.0); Hemoglobin 9.7 GM/DL (12.0-16.0); Immature Granulocytes % 4.4 %; Immature Granulocytes Absolute 0.35 #; Lymphocytes # 0.9 10*3/uL (1.4-4.0); Lymphocytes % 10.9 % (21.3-54.2); Mean Corpuscular Hemoglobin 39 PG (27-34); Mean Corpuscular Volume 110.8 FL (87-102); Mean Platelet Volume 9.9 FL (9.6-12.0); Monocytes # 0.8 10*3/uL (0.11-0.8); Monocytes % 9.9 % (1.7-12.7); NRBC # 0.05 10*3/uL; Neutrophils # 5.8 10*3/uL (1.4-7.4); Neutrophils % 73.8 % (38.7-73.9); Platelet Count 90 T/CUMM (130-400); Red Cell Distribution Width 13.5 % (9.3-17.3); White Blood Count 7.9 T/CUMM (4-12)
[2018-06-24 04:38] LABS: Calcium 7.8 MG/DL (8.5-10.1); Osmolality,Calculated 273.7 MOS/KG (273-304); Potassium 3.5 MMOL/L (3.5-5.1)
[2018-06-24 04:43] LABS: Band Neutrophils 4 % (0-10); Eosinophils 2 % (0-10); Lymphocytes 15 % (20-55); Macrocytosis 3+; Segmented Neutrophils 75 % (50-85); Total Cells Counted 100
[2018-06-24 04:44] LABS: Anisocytosis 1+; Platelet Estimate Decreased
[2018-06-24 04:45] LABS: Albumin 1.8 G/DL (3.4-5.0); Bilirubin,Direct 19.39 MG/DL (0.0-0.20)
[2018-06-24 05:10] LABS: Bilirubin,Total 22.4 MG/DL (0.2-1.0)
[2018-06-24] MEDS: LEVOTHYROXINE 50 MCG TABLET PO SCH (06:08)
[2018-06-24] MEDS ORDERED: DEXTROSE 50% 25 GM/50 ML VIAL IV PRN (08:16)
[2018-06-24] MEDS ORDERED: GLUCAGON 1 MG VIAL IM PRN (08:16)
[2018-06-24] MEDS: LACTULOSE 20 GM/30 ML UDCUP PO SCH ×2 (08:44→08:51)
[2018-06-24] MEDS: MAGNESIUM OXIDE 400 MG TABLET PO SCH (08:44)
[2018-06-24] MEDS: SOTALOL 80 MG TABLET PO SCH ×2 (08:45→21:02)
[2018-06-24] MEDS: POTASSIUM CHLORIDE 20 MEQ TABLET PO SCH ×2 (08:45→21:03)
[2018-06-24] MEDS: FAMOTIDINE 20 MG TABLET PO SCH ×2 (08:45→21:02)
[2018-06-24] MEDS: CYANOCOBALAMIN 500 MCG TABLET PO SCH (08:45)
[2018-06-24] MEDS: FOLIC ACID 0.4 MG TABLET PO SCH (08:45)
[2018-06-24] MEDS: RIFAXIMIN 550 MG TABLET PO SCH ×2 (08:45→21:03)
[2018-06-24] MEDS: SERTRALINE 100 MG TABLET PO SCH (08:50)
[2018-06-24] MEDS: DEXTROSE 5% NACL 0.9% 1,000 ML IV SCH (13:02)
[2018-06-24] MEDS ORDERED: LIDOCAINE/PRILOCAINE CREAM 5 GM TUBE TOP PRN (17:46)
[2018-06-24] MEDS: PRAMIPEXOLE 0.25 MG TABLET PO PRN (18:01)
[2018-06-24] MEDS: LORazepam 2 MG/1 ML VIAL IV PRN (18:02)
[2018-06-24] MEDS: predniSONE 10 MG TABLET PO SCH (21:01)
[2018-06-25] MEDS: LORazepam 2 MG/1 ML VIAL IV PRN ×2 (00:01→18:26)
[2018-06-25] MEDS: DEXTROSE 5% NACL 0.9% 1,000 ML IV SCH ×2 (02:22→15:55)
[2018-06-25 02:30] LABS: Apearance,Urine Slightly Hazy (Clear); Blood, Urine Small mg/dL (Negative); Glucose,Urine (UA) Negative (Negative); Hyaline Casts,Urine 1 /LPF (0-3); Ketones,Urine Negative (Negative); Mucus,Urine Occasional /LPF (Occasional); Nitrite,Urine Negative (Negative); Protein,Urine 30 MG/DL; RBC,Urine 1 /HPF (0-4); Renal Epithelial Cells,Urine Occasional /HPF (<1); Squamous Epithelial Cell,Urine Occasional /HPF (0-10); Urine Color Amber (Yellow); Urine Specific Gravity 1.011 (1.001-1.035); WBC,Urine 2 /HPF (0-6)
[2018-06-25 02:31] LABS: Bilirubin,Urine Moderate mg/dL (Negative)
[2018-06-25 06:07] LABS: Basophils % 0.4 % (0.0-0.8); Eosinophils % 0.5 % (0.00-10.9); Hematocrit 28.5 VOL% (35.7-47.0); Immature Granulocytes % 5.5 %; Immature Granulocytes Absolute 0.43 #; Lymphocytes # 0.9 10*3/uL (1.4-4.0); Lymphocytes % 11.1 % (21.3-54.2); Mean Corpuscular HGB Conc 35.1 GM/DL (32-36); Mean Corpuscular Hemoglobin 39 PG (27-34); Mean Platelet Volume 10.7 FL (9.6-12.0); Monocytes # 0.4 10*3/uL (0.11-0.8); Monocytes % 4.9 % (1.7-12.7); NRBC # 0.05 10*3/uL; Neutrophils # 6.1 10*3/uL (1.4-7.4); Neutrophils % 77.6 % (38.7-73.9); Platelet Count 90 T/CUMM (130-400); Red Blood Count 2.59 MC/CUMM (3.8-5.5); Red Cell Distribution Width 13.7 % (9.3-17.3); White Blood Count 7.8 T/CUMM (4-12)
[2018-06-25 06:16] LABS: INR 1.1; PT Patient Result 11.4 SECS; Partial Thromboplastin Time 28.2 SECS (0-40)
[2018-06-25] MEDS: LEVOTHYROXINE 50 MCG TABLET PO SCH (06:31)
[2018-06-25] MEDS: SUCRALFATE 1 GM TABLET PO SCH ×4 (06:31→18:26)
[2018-06-25 06:45] LABS: Albumin 1.8 G/DL (3.4-5.0); Calcium 8.2 MG/DL (8.5-10.1); Osmolality,Calculated 276.5 MOS/KG (273-304); Potassium 3.6 MMOL/L (3.5-5.1); Total Protein 5.1 G/DL (6.4-8.3)
[2018-06-25 06:51] LABS: Bilirubin,Total 22.9 MG/DL (0.2-1.0)
[2018-06-25 06:57] LABS: Eosinophils 1 % (0-10); Lymphocytes 8 % (20-55); Nucleated Red Blood Cells 1 (0-5); Platelet Estimate Decreased; Segmented Neutrophils 89 % (50-85); Total Cells Counted 100
[2018-06-25] MEDS: SOTALOL 80 MG TABLET PO SCH ×2 (09:03→20:34)
[2018-06-25] MEDS: FOLIC ACID 0.4 MG TABLET PO SCH (09:03)
[2018-06-25] MEDS: MAGNESIUM OXIDE 400 MG TABLET PO SCH (09:04)
[2018-06-25] MEDS: RIVAROXABAN 20 MG TABLET PO SCH (09:04)
[2018-06-25] MEDS: predniSONE 10 MG TABLET PO SCH ×2 (09:04→20:39)
[2018-06-25] MEDS: FAMOTIDINE 20 MG TABLET PO SCH ×2 (09:04→20:40)
[2018-06-25] MEDS: CYANOCOBALAMIN 500 MCG TABLET PO SCH (09:04)
[2018-06-25] MEDS: POTASSIUM CHLORIDE 20 MEQ TABLET PO SCH ×2 (09:05→20:41)
[2018-06-25] MEDS: SERTRALINE 100 MG TABLET PO SCH (09:05)
[2018-06-25] MEDS: RIFAXIMIN 550 MG TABLET PO SCH ×2 (09:05→20:40)
[2018-06-25] MEDS: LACTULOSE 20 GM/30 ML UDCUP PO SCH (10:22)
[2018-06-25] MEDS: PRAMIPEXOLE 0.25 MG TABLET PO PRN (18:26)
[2018-06-26] MEDS: SUCRALFATE 1 GM TABLET PO SCH ×5 (00:39→22:59)
[2018-06-26] MEDS: LEVOTHYROXINE 50 MCG TABLET PO SCH (05:33)
[2018-06-26] MEDS: DEXTROSE 5% NACL 0.9% 1,000 ML IV SCH ×2 (05:33→20:21)
[2018-06-26] MEDS: RIFAXIMIN 550 MG TABLET PO SCH ×2 (09:08→20:22)
[2018-06-26] MEDS: MAGNESIUM OXIDE 400 MG TABLET PO SCH (09:08)
[2018-06-26] MEDS: predniSONE 10 MG TABLET PO SCH ×2 (09:08→20:23)
[2018-06-26] MEDS: RIVAROXABAN 20 MG TABLET PO SCH (09:08)
[2018-06-26] MEDS: POTASSIUM CHLORIDE 20 MEQ TABLET PO SCH ×2 (09:09→20:19)
[2018-06-26] MEDS: FOLIC ACID 0.4 MG TABLET PO SCH (09:09)
[2018-06-26] MEDS: SOTALOL 80 MG TABLET PO SCH ×2 (09:09→20:24)
[2018-06-26] MEDS: FAMOTIDINE 20 MG TABLET PO SCH ×2 (09:09→20:22)
[2018-06-26] MEDS: CYANOCOBALAMIN 500 MCG TABLET PO SCH (09:09)
[2018-06-26] MEDS: SERTRALINE 100 MG TABLET PO SCH (09:09)
[2018-06-26] MEDS: LACTULOSE 20 GM/30 ML UDCUP PO SCH (09:10)
[2018-06-26] MEDS: LORazepam 2 MG/1 ML VIAL IV PRN (17:11)
[2018-06-26] MEDS: PRAMIPEXOLE 0.25 MG TABLET PO PRN (17:12)
[2018-06-27] MEDS: LEVOTHYROXINE 75 MCG TABLET PO SCH (06:19)
[2018-06-27] MEDS: LORazepam 2 MG/1 ML VIAL IV PRN (06:19)
[2018-06-27] MEDS: SUCRALFATE 1 GM TABLET PO SCH ×3 (06:19→17:20)
[2018-06-27 07:21] LABS: Albumin 1.8 G/DL (3.4-5.0); Calcium 7.2 MG/DL (8.5-10.1); Osmolality,Calculated 308.1 MOS/KG (273-304); Potassium 3.2 MMOL/L (3.5-5.1); Total Protein 5.1 G/DL (6.4-8.3)
[2018-06-27 07:30] LABS: Bilirubin,Total 19.9 MG/DL (0.2-1.0)
[2018-06-27] MEDS: predniSONE 10 MG TABLET PO SCH (09:48)
[2018-06-27] MEDS: MAGNESIUM OXIDE 400 MG TABLET PO SCH (09:48)
[2018-06-27] MEDS: RIVAROXABAN 20 MG TABLET PO SCH (09:49)
[2018-06-27] MEDS: SERTRALINE 100 MG TABLET PO SCH (09:49)
[2018-06-27] MEDS: FOLIC ACID 0.4 MG TABLET PO SCH (09:49)
[2018-06-27] MEDS: SOTALOL 80 MG TABLET PO SCH ×2 (09:49→20:12)
[2018-06-27] MEDS: RIFAXIMIN 550 MG TABLET PO SCH ×2 (09:49→20:13)
[2018-06-27] MEDS: CYANOCOBALAMIN 500 MCG TABLET PO SCH (09:49)
[2018-06-27] MEDS: POTASSIUM CHLORIDE 20 MEQ TABLET PO SCH ×2 (09:49→20:13)
[2018-06-27] MEDS: FAMOTIDINE 20 MG TABLET PO SCH ×2 (09:49→20:13)
[2018-06-27] MEDS: LACTULOSE 20 GM/30 ML UDCUP PO SCH (09:50)
[2018-06-27] MEDS ORDERED: LISINOPRIL 5 MG TABLET PO SCH (14:00)
[2018-06-27] MEDS: PRAMIPEXOLE 0.25 MG TABLET PO PRN (20:13)
[2018-06-28] MEDS: DEXTROSE 5% NACL 0.9% 1,000 ML IV SCH (00:54)
[2018-06-28] MEDS: SUCRALFATE 1 GM TABLET PO SCH ×5 (00:58→23:38)
[2018-06-28 05:39] LABS: Basophils % 0.2 % (0.0-0.8); Eosinophils % 0.1 % (0.00-10.9); Hematocrit 28.3 VOL% (35.7-47.0); Hemoglobin 9.6 GM/DL (12.0-16.0); Immature Granulocytes % 3.6 %; Immature Granulocytes Absolute 0.41 #; Lymphocytes # 1.2 10*3/uL (1.4-4.0); Mean Corpuscular HGB Conc 33.9 GM/DL (32-36); Mean Corpuscular Hemoglobin 38 PG (27-34); Mean Corpuscular Volume 110.5 FL (87-102); Mean Platelet Volume 11.2 FL (9.6-12.0); Monocytes # 0.8 10*3/uL (0.11-0.8); NRBC # 0.15 10*3/uL; Neutrophils # 8.8 10*3/uL (1.4-7.4); Neutrophils % 78.1 % (38.7-73.9); Platelet Count 117 T/CUMM (130-400); Red Blood Count 2.56 MC/CUMM (3.8-5.5); Red Cell Distribution Width 14.2 % (9.3-17.3); White Blood Count 11.3 T/CUMM (4-12)
[2018-06-28 05:48] LABS: Calcium 8.4 MG/DL (8.5-10.1); Osmolality,Calculated 275.5 MOS/KG (273-304); Potassium 3.4 MMOL/L (3.5-5.1)
[2018-06-28] MEDS: LEVOTHYROXINE 75 MCG TABLET PO SCH (06:00)
[2018-06-28 06:01] LABS: Macrocytosis 1+
[2018-06-28 06:02] LABS: Hypochromasia Slight; Platelet Estimate Adequate
[2018-06-28] MEDS: POTASSIUM CHLORIDE 20 MEQ TABLET PO SCH ×2 (08:38→21:09)
[2018-06-28] MEDS: predniSONE 20 MG TABLET PO SCH (08:39)
[2018-06-28] MEDS: CYANOCOBALAMIN 500 MCG TABLET PO SCH (08:39)
[2018-06-28] MEDS: RIFAXIMIN 550 MG TABLET PO SCH ×2 (08:39→21:09)
[2018-06-28] MEDS: FOLIC ACID 0.4 MG TABLET PO SCH (08:39)
[2018-06-28] MEDS: SERTRALINE 100 MG TABLET PO SCH (08:39)
[2018-06-28] MEDS: FAMOTIDINE 20 MG TABLET PO SCH ×2 (08:39→21:10)
[2018-06-28] MEDS: MAGNESIUM OXIDE 400 MG TABLET PO SCH (08:39)
[2018-06-28] MEDS: LISINOPRIL 10 MG TABLET PO SCH (08:39)
[2018-06-28] MEDS: SOTALOL 80 MG TABLET PO SCH ×2 (08:40→21:09)
[2018-06-28] MEDS ORDERED: POTASSIUM CHLORIDE 20 MEQ TABLET PO ONE (11:24)
[2018-06-28] MEDS: MAGNESIUM CHLORIDE 64 MG TABLET PO SCH ×2 (15:08→21:09)
[2018-06-28] MEDS: PRAMIPEXOLE 0.25 MG TABLET PO PRN (18:08)
[2018-06-29 02:30] LABS: Apearance,Urine CLEAR (Clear); Bacteria,Urine Occasional /HPF (Few); Bilirubin,Urine Small mg/dL (Negative); Blood, Urine Small mg/dL (Negative); Glucose,Urine (UA) Negative (Negative); Ketones,Urine Negative (Negative); Mucus,Urine Occasional /LPF (Occasional); Nitrite,Urine Negative (Negative); Protein,Urine Negative; RBC,Urine 3 /HPF (0-4); Squamous Epithelial Cell,Urine Occasional /HPF (0-10); Urine Color Amber (Yellow); Urine Specific Gravity 1.009 (1.001-1.035); WBC,Urine 1 /HPF (0-6)
[2018-06-29] MEDS: SUCRALFATE 1 GM TABLET PO SCH ×4 (06:07→23:35)
[2018-06-29] MEDS: LEVOTHYROXINE 75 MCG TABLET PO SCH (06:07)
[2018-06-29] MEDS: MAGNESIUM CHLORIDE 64 MG TABLET PO SCH ×3 (09:41→20:34)
[2018-06-29] MEDS: SOTALOL 80 MG TABLET PO SCH ×2 (09:41→20:35)
[2018-06-29] MEDS: FAMOTIDINE 20 MG TABLET PO SCH ×2 (09:41→20:35)
[2018-06-29] MEDS: FOLIC ACID 0.4 MG TABLET PO SCH (09:41)
[2018-06-29] MEDS: CYANOCOBALAMIN 500 MCG TABLET PO SCH (09:41)
[2018-06-29] MEDS: LISINOPRIL 10 MG TABLET PO SCH (09:42)
[2018-06-29] MEDS: SERTRALINE 100 MG TABLET PO SCH (09:42)
[2018-06-29] MEDS: RIFAXIMIN 550 MG TABLET PO SCH ×2 (09:42→20:35)
[2018-06-29] MEDS: POTASSIUM CHLORIDE 20 MEQ TABLET PO SCH ×2 (09:42→20:34)
[2018-06-29] MEDS: predniSONE 20 MG TABLET PO SCH (09:42)
[2018-06-29] MEDS: PRAMIPEXOLE 0.25 MG TABLET PO PRN (18:38)
[2018-06-30 05:17] LABS: Calcium 8.4 MG/DL (8.5-10.1); Osmolality,Calculated 271.8 MOS/KG (273-304); Potassium 3.3 MMOL/L (3.5-5.1)
[2018-06-30] MEDS: SUCRALFATE 1 GM TABLET PO SCH ×3 (06:34→17:57)
[2018-06-30] MEDS: LEVOTHYROXINE 75 MCG TABLET PO SCH (06:34)
[2018-06-30] MEDS: predniSONE 20 MG TABLET PO SCH (08:14)
[2018-06-30] MEDS: RIFAXIMIN 550 MG TABLET PO SCH ×2 (08:14→20:50)
[2018-06-30] MEDS: POTASSIUM CHLORIDE 20 MEQ TABLET PO SCH ×2 (08:14→20:50)
[2018-06-30] MEDS: MAGNESIUM CHLORIDE 64 MG TABLET PO SCH ×3 (08:14→20:50)
[2018-06-30] MEDS: SOTALOL 80 MG TABLET PO SCH ×2 (08:15→20:50)
[2018-06-30] MEDS: FAMOTIDINE 20 MG TABLET PO SCH ×2 (08:15→20:50)
[2018-06-30] MEDS: LISINOPRIL 20 MG TABLET PO SCH (08:16)
[2018-06-30] MEDS: FOLIC ACID 0.4 MG TABLET PO SCH (08:16)
[2018-06-30] MEDS: CYANOCOBALAMIN 500 MCG TABLET PO SCH (08:16)
[2018-06-30] MEDS: SERTRALINE 100 MG TABLET PO SCH (08:17)
[2018-06-30] MEDS ORDERED: traMADol 50 MG TABLET PO PRN (10:45)
[2018-06-30] MEDS: PRAMIPEXOLE 0.25 MG TABLET PO PRN (18:01)
[2018-07-01] MEDS: SUCRALFATE 1 GM TABLET PO SCH ×3 (01:00→12:39)
[2018-07-01] MEDS: LEVOTHYROXINE 75 MCG TABLET PO SCH (06:05)
[2018-07-01] MEDS: predniSONE 20 MG TABLET PO SCH (09:27)
[2018-07-01] MEDS: POTASSIUM CHLORIDE 20 MEQ TABLET PO SCH (09:27)
[2018-07-01] MEDS: FOLIC ACID 0.4 MG TABLET PO SCH (09:27)
[2018-07-01] MEDS: SOTALOL 80 MG TABLET PO SCH (09:27)
[2018-07-01] MEDS: FAMOTIDINE 20 MG TABLET PO SCH (09:27)
[2018-07-01] MEDS: CYANOCOBALAMIN 500 MCG TABLET PO SCH (09:27)
[2018-07-01] MEDS: LISINOPRIL 20 MG TABLET PO SCH (09:27)
[2018-07-01] MEDS: SERTRALINE 100 MG TABLET PO SCH (09:28)
[2018-07-01] MEDS: MAGNESIUM CHLORIDE 64 MG TABLET PO SCH (09:28)
[2018-07-01 12:02] VITALS: BP 138/81
== END 2018-07-01 12:35 | disposition home health service (06) | DRG 442 ==
LOC: N.ED 16:53 → N.EDINP 19:40 → SUATTDRO 19:41 → N.4E 20:35
PROVIDERS: ATTEND Internal Medicine